=== PATIENT | male | born 1980 | race African-American/Black ===

== ENCOUNTER 2016-07-23 22:51 | Emergency (ER) | payer SELFPAY ==
[~2016-07-23] VITALS: Ht 188 cm; Wt 131.0 kg
[2016-07-23] MEDS ORDERED: HYDROCODONE/ACETAMINOPHEN 5/325MG TABLET PO ONE (23:45)
[2016-07-24] MEDS ORDERED: LIDOCAINE HCL 1% 20ML VIAL (Pyxis) INJ INFIL ONE (00:15)
[2016-07-24] MEDS ORDERED: KETOROLAC 60MG/2ML VIAL IM ONE (02:15)
[2016-07-24] MEDS ORDERED: CEFTRIAXONE SODIUM 1 G/VIAL IM ONE (03:30)
[2016-07-24 05:29] VITALS: BP 109/78
== END 2016-07-24 05:31 | disposition home or self-care (01) ==
LOC: ER 23:00
DX: S01.01XA Laceration without foreign body of scalp, initial encounter (principal); S01.312A Laceration without foreign body of left ear, initial encounter; F17.200 Nicotine dependence, unspecified, uncomplicated; F12.10 Cannabis abuse, uncomplicated; W22.8XXA Striking against or struck by other objects, initial encounter; Y93.89 Activity, other specified; Y92.89 Other specified places as the place of occurrence of the external cause; Y99.8 Other external cause status
CPT/HCPCS: 12001; 70450; 70486; 96372; 99284; J0696; J1885; J3490; X7700; Z7610

== ENCOUNTER 2016-08-01 14:08 | Emergency (ER) | payer SELFPAY ==
[~2016-08-01] VITALS: Ht 188 cm; Wt 102.0 kg
[2016-08-01 16:30] VITALS: BP 115/62
== END 2016-08-01 17:52 | disposition home or self-care (01) ==
LOC: ER 17:15
DX: Z48.02 Encounter for removal of sutures (principal); J45.909 Unspecified asthma, uncomplicated
CPT/HCPCS: 99281; Z7610